=== PATIENT | male | born 1965 | race Caucasian/White ===

== ENCOUNTER 2019-06-25 10:14 | Emergency (ER) | payer SELFPAY ==
[~2019-06-25] VITALS: Ht 162.6 cm; Wt 59.0 kg
[2019-06-25 10:22] VITALS: BP 121/70
[2019-06-25] MEDS ORDERED: ACETAMINOPHEN 325MG TABLET PO ONE (10:45)
[2019-06-25] MEDS ORDERED: ACETAMINOPHEN 500MG TABLET PO NR (11:00)
== END 2019-06-25 12:35 | disposition home or self-care (01) ==
LOC: ER 10:26
DX: H57.11 Ocular pain, right eye (principal); Y08.89XA Assault by other specified means, initial encounter; Y93.9 Activity, unspecified; Y92.9 Unspecified place or not applicable
CPT/HCPCS: 70486; 99284

== ENCOUNTER 2019-07-13 11:07 | Emergency (ER) | payer SELFPAY ==
[~2019-07-13] VITALS: Ht 157.5 cm; Wt 55.0 kg
[2019-07-13] MEDS ORDERED: CYCLOBENZAPRINE 10MG TABLET PO ONE (12:00)
[2019-07-13] MEDS ORDERED: IBUPROFEN 600MG TABLET PO ONE (12:00)
[2019-07-13 12:25] VITALS: BP 111/53
[2019-07-13 12:46] LABS: CLARITY URINE CLEAR (CLEAR); COLOR URINE YELLOW (YELLOW); KETONES URINE NEGATIVE (NEGATIVE); LEUKOCYTE ESTERASE URINE NEGATIVE (NEGATIVE); NITRITE URINE NEGATIVE (NEGATIVE); OCCULT BLOOD URINE NEGATIVE (NEGATIVE); PROTEIN URINE NEGATIVE (NEGATIVE); SPECIFIC GRAVITY URINE 1.007 (1.005-1.030)
== END 2019-07-13 13:26 | disposition home or self-care (01) ==
LOC: ER 11:07
DX: M54.9 Dorsalgia, unspecified (principal); W01.0XXA Fall on same level from slipping, tripping and stumbling without subsequent striking against object, initial encounter; Y93.9 Activity, unspecified; Y92.9 Unspecified place or not applicable
CPT/HCPCS: 81003; 99283

== ENCOUNTER 2019-08-15 18:14 | Inpatient (IN) | payer SELFPAY ==
[~2019-08-15] VITALS: Ht 162.6 cm; Wt 65.8 kg
[2019-08-15] MEDS ORDERED: SODIUM CHLORIDE 0.9% 1,000 ML IV ONE ×3 (18:34→21:45)
[2019-08-15] MEDS ORDERED: KETOROLAC 15MG/ML VIAL IV ONE (18:45)
[2019-08-15] MEDS ORDERED: PIPERACILLIN/TAZ 3.375G PREMIX 50 ML IV ONE (19:00)
[2019-08-15] MEDS ORDERED: VANCOMYCIN 1 G PREMIX 200 ML IV ONE (19:00)
[2019-08-15 19:14] LABS: MEAN CORPUSCULAR HEMOGLOBIN 19.2 pg (28.0-32.0); MEAN CORPUSCULAR VOLUME 67.4 fL (80.0-94.0); MEAN PLATELET VOLUME 8.8 fl (7.4-10.4); PLATELET 89 x1000/uL (130-400); RED BLOOD CELL COUNT 2.43 mill/uL (4.7-6.1); RED CELL DISTRIBUTION WIDTH 22.3 % (11.6-14.6)
[2019-08-15 19:20] LABS: CHLORIDE 100 mEq/L (98-107)
[2019-08-15 19:25] LABS: HEMATOCRIT. 16.4 % (42.0-52.0); HEMOGLOBIN. 4.7 g/dL (14.0-18.0)
[2019-08-15 19:31] LABS: ETHANOL BLOOD 288 mg/dL
[2019-08-15 19:51] LABS: PLATELET ESTIMATE DECREASED
[2019-08-15] MEDS ORDERED: PANTOPRAZOLE SODIUM 40 MG/VIAL IV ONE (20:30)
[2019-08-15] MEDS ORDERED: ONDANSETRON HCL 4MG/2ML INJ IV PRN (21:30)
[2019-08-15] MEDS ORDERED: MAGNESIUM/ALUMINUM HYDROXIDE/SIMETHICONE 30ML UDC PO PRN (21:30)
[2019-08-15] MEDS ORDERED: LORAZEPAM 2MG/ML CPJ IV PRN (21:30)
[2019-08-15] MEDS ORDERED: HYDROCODONE/ACETAMINOPHEN 5/325MG TABLET PO PRN (21:30)
[2019-08-16] VITALS (16 sets, daily range): BP systolic 91–115; BP diastolic 49–65
[2019-08-16 01:13] LABS: TOTAL IRON BINDING CAPACITY 220 ug/dL (250-450)
[2019-08-16 05:22] LABS: MEAN CORPUSCULAR HEMOGLOBIN 20.7 pg (28.0-32.0); MEAN CORPUSCULAR VOLUME 70.3 fL (80.0-94.0); MEAN PLATELET VOLUME 8.9 fl (7.4-10.4); PLATELET 64 x1000/uL (130-400); RED CELL DISTRIBUTION WIDTH 25.1 % (11.6-14.6)
[2019-08-16 05:33] LABS: CHLORIDE 108 mEq/L (98-107)
[2019-08-16 05:37] LABS: HEMATOCRIT. 16.9 % (42.0-52.0)
[2019-08-16 06:24] LABS: PLATELET ESTIMATE DECREASED
[2019-08-16] MEDS ORDERED: DEXT 5%/0.45% NACL 1000ML 1,000 ML IV SCH (09:30)
[2019-08-16] MEDS ORDERED: PANTOPRAZOLE SODIUM 40 MG/VIAL IV SCH (10:00)
[2019-08-16] MEDS: MULTIVITAMINS,THER W-MINERALS TABLET PO SCH (10:04)
[2019-08-16] MEDS: FOLIC ACID 1MG TABLET PO SCH (10:05)
[2019-08-16] MEDS: ACETAMINOPHEN 325MG TABLET PO PRN ×2 (10:05→21:39)
[2019-08-16] MEDS ORDERED: CEFTRIAXONE 1,000 MG in DEXTROSE 5% WATER 50 ML IV SCH ×2 (11:00→18:00)
[2019-08-16] MEDS: PANTOPRAZOLE SODIUM 40 MG/VIAL IV SCH (18:13)
[2019-08-16] MEDS: DEXT 5%/0.45% NACL 1000ML 1,000 ML IV SCH (18:14)
[2019-08-16 20:30] LABS: INR 1.3; PROTHROMBIN TIME 14.1 sec (9.6-11.0)
[2019-08-16 20:34] LABS: MEAN CORPUSCULAR HEMOGLOBIN 23.5 pg (28.0-32.0); MEAN CORPUSCULAR VOLUME 74.4 fL (80.0-94.0); PLATELET 53 x1000/uL (130-400); RED BLOOD CELL COUNT 2.88 mill/uL (4.7-6.1); RED CELL DISTRIBUTION WIDTH 26.3 % (11.6-14.6)
[2019-08-16 20:41] LABS: HEMOGLOBIN 6.8 g/dL (14.0-18.0)
[2019-08-16 20:42] LABS: HEMATOCRIT 21.4 % (42.0-52.0)
[2019-08-16 20:59] LABS: HEPATITIS B SURFACE ANTIGEN NEGATIVE
[2019-08-16 21:05] LABS: CLARITY URINE CLOUDY (CLEAR); COLOR URINE DARK YELLOW (YELLOW); KETONES URINE NEGATIVE (NEGATIVE); LEUKOCYTE ESTERASE URINE 3+ (NEGATIVE); NITRITE URINE POSITIVE (NEGATIVE); OCCULT BLOOD URINE 3+ (NEGATIVE); PROTEIN URINE 1+ (NEGATIVE); SPECIFIC GRAVITY URINE 1.017 (1.005-1.030)
[2019-08-16 21:23] LABS: *AMPHETAMINES SCREEN URINE NEGATIVE (NEGATIVE); *BARBITURATES SCREEN URINE NEGATIVE (NEGATIVE); *BENZODIAZEPINES SCREEN URINE NEGATIVE (NEGATIVE); *COCAINE SCREEN URINE NEGATIVE (NEGATIVE); METHADONE URINE SCREEN NEGATIVE (NEGATIVE); OPIATES URINE SCREEN NEGATIVE (NEGATIVE); PHENCYCLIDINE URINE SCREEN NEGATIVE (NEGATIVE)
[2019-08-16 21:24] LABS: CANNABINOID URINE SCREEN NEGATIVE (NEGATIVE)
[2019-08-16 21:29] LABS: HEPATITIS A AB IGM NEGATIVE (NEGATIVE)
[2019-08-17] VITALS (8 sets, daily range): BP systolic 103–121; BP diastolic 52–69
[2019-08-17] MEDS: DEXT 5%/0.45% NACL 1000ML 1,000 ML IV SCH ×3 (03:20→23:55)
[2019-08-17 06:29] LABS: BASOPHILS % 0.3 % (0.0-2.0); EOSINOPHILS % 1.2 % (0.0-5.0); HEMATOCRIT. 24.8 % (42.0-52.0); HEMOGLOBIN. 8.1 g/dL (14.0-18.0); MEAN CORPUSCULAR HEMOGLOBIN 25.1 pg (28.0-32.0); MEAN CORPUSCULAR VOLUME 76.6 fL (80.0-94.0); MEAN PLATELET VOLUME 8.5 fl (7.4-10.4); MONOCYTES % 10.4 % (2.0-8.0); NEUTROPHILS % 80.1 % (40.0-76.0); PLATELET 55 x1000/uL (130-400); RED BLOOD CELL COUNT 3.24 mill/uL (4.7-6.1); RED CELL DISTRIBUTION WIDTH 27.4 % (11.6-14.6)
[2019-08-17 06:32] LABS: CHLORIDE 106 mEq/L (98-107)
[2019-08-17] MEDS: MULTIVITAMINS,THER W-MINERALS TABLET PO SCH (08:01)
[2019-08-17] MEDS: FOLIC ACID 1MG TABLET PO SCH (08:01)
[2019-08-17] MEDS: PANTOPRAZOLE SODIUM 40 MG/VIAL IV SCH ×2 (08:17→17:18)
[2019-08-17] MEDS ORDERED: POTASSIUM CHLORIDE INJ 40 MEQ in DEXT 5% WATER 250 ML IV NR (09:00)
[2019-08-17 09:05] LABS: INR 1.4; PROTHROMBIN TIME 15.3 sec (9.6-11.0)
[2019-08-17] MEDS ORDERED: CEFAZOLIN 2,000 MG in DEXT 5% WATER 100 ML IV SCH (10:00)
[2019-08-17] MEDS ORDERED: MIDAZOLAM HCL 5 MG/5 ML VIAL IV PRN (10:38)
[2019-08-17] MEDS ORDERED: MIDAZOLAM HCL 5 MG/5 ML VIAL ONE (10:38)
[2019-08-17] MEDS ORDERED: FENTANYL CITRATE/PF 50MCG/ML 2ML VIAL ONE (10:38)
[2019-08-17] MEDS: ACETAMINOPHEN 325MG TABLET PO PRN (13:14)
[2019-08-17] MEDS: MIDODRINE HCL 5MG TABLET PO SCH ×2 (13:14→17:18)
[2019-08-17] MEDS: CEFAZOLIN 2,000 MG in DEXT 5% WATER 100 ML IV SCH (13:26)
[2019-08-17] MEDS ORDERED: LIDOCAINE HCL 1% 20ML VIAL (Pyxis) INJ ONE (14:16)
[2019-08-17] MEDS ORDERED: SODIUM BICARBONATE 4% (2.4MEQ) 5ML VIAL IV ONE (14:17)
[2019-08-17 15:59] LABS: PHOSPHORUS 2.8 mg/dL (2.5-4.9)
[2019-08-17 16:28] LABS: VITAMIN B12 SERUM >2000 pg/mL pg/mL (211-911)
[2019-08-17] MEDS ORDERED: SORBITOL 70% SOLN 30ML PO NR (18:00)
[2019-08-18] VITALS: BP 122/68
[2019-08-18] MEDS: CEFAZOLIN 2,000 MG in DEXT 5% WATER 100 ML IV SCH ×2 (01:04→14:11)
[2019-08-18 04:00] VITALS: BP 107/63
[2019-08-18] MEDS: ACETAMINOPHEN 325MG TABLET PO PRN (06:14)
[2019-08-18 07:00] LABS: BASOPHILS % 0.2 % (0.0-2.0); EOSINOPHILS % 0.8 % (0.0-5.0); HEMATOCRIT. 25.5 % (42.0-52.0); HEMOGLOBIN. 8.2 g/dL (14.0-18.0); LYMPHOCYTES % 11.8 % (20.0-50.0); MEAN CORPUSCULAR VOLUME 77.7 fL (80.0-94.0); MEAN PLATELET VOLUME 8.7 fl (7.4-10.4); MONOCYTES % 9.8 % (2.0-8.0); NEUTROPHILS % 77.4 % (40.0-76.0); PLATELET 54 x1000/uL (130-400); RED BLOOD CELL COUNT 3.29 mill/uL (4.7-6.1); RED CELL DISTRIBUTION WIDTH 27.1 % (11.6-14.6)
[2019-08-18 08:00] VITALS: BP 103/61
[2019-08-18] MEDS ORDERED: SORBITOL 70% SOLN 30ML PO NR (08:00)
[2019-08-18] MEDS: FOLIC ACID 1MG TABLET PO SCH (08:32)
[2019-08-18] MEDS: PANTOPRAZOLE SODIUM 40 MG/VIAL IV SCH ×2 (08:32→17:30)
[2019-08-18] MEDS: MULTIVITAMINS,THER W-MINERALS TABLET PO SCH (08:32)
[2019-08-18] MEDS: DEXT 5%/0.45% NACL 1000ML 1,000 ML IV SCH ×2 (08:39→17:35)
[2019-08-18] MEDS: MIDODRINE HCL 5MG TABLET PO SCH ×3 (08:39→17:34)
[2019-08-18 12:03] VITALS: BP 98/57
[2019-08-18] MEDS ORDERED: MIDAZOLAM HCL 5 MG/5 ML VIAL ONE (15:30)
[2019-08-18] MEDS ORDERED: MIDAZOLAM HCL 5 MG/5 ML VIAL IV PRN (15:30)
[2019-08-18] MEDS ORDERED: POTASSIUM CHLORIDE 20MEQ TABLET SR PO NR (16:30)
[2019-08-18 20:00] VITALS: BP 100/68
[2019-08-19] VITALS: BP 110/71
[2019-08-19] MEDS: CEFAZOLIN 2,000 MG in DEXT 5% WATER 100 ML IV SCH ×2 (01:13→15:01)
[2019-08-19] MEDS: ACETAMINOPHEN 325MG TABLET PO PRN (01:19)
[2019-08-19 03:56] VITALS: BP 96/59
[2019-08-19 07:44] LABS: CHLORIDE 110 mEq/L (98-107)
[2019-08-19 07:57] LABS: BASOPHILS % 0.5 % (0.0-2.0); EOSINOPHILS % 1.8 % (0.0-5.0); HEMATOCRIT. 26.7 % (42.0-52.0); HEMOGLOBIN. 8.4 g/dL (14.0-18.0); LYMPHOCYTES % 6.7 % (20.0-50.0); MEAN CORPUSCULAR HEMOGLOBIN 24.8 pg (28.0-32.0); MEAN CORPUSCULAR VOLUME 79.2 fL (80.0-94.0); MEAN PLATELET VOLUME 8.5 fl (7.4-10.4); MONOCYTES % 10.7 % (2.0-8.0); NEUTROPHILS % 80.3 % (40.0-76.0); RED BLOOD CELL COUNT 3.38 mill/uL (4.7-6.1); RED CELL DISTRIBUTION WIDTH 27.5 % (11.6-14.6)
[2019-08-19 08:21] LABS: PLATELET 50 x1000/uL (130-400)
[2019-08-19 08:39] VITALS: BP 86/47
[2019-08-19 09:09] LABS: FOLATE HEMATOCRIT 25.6 % (37.5-51.0)
[2019-08-19] MEDS: PANTOPRAZOLE SODIUM 40 MG/VIAL IV SCH ×2 (10:05→17:46)
[2019-08-19] MEDS: MULTIVITAMINS,THER W-MINERALS TABLET PO SCH (10:05)
[2019-08-19] MEDS: MIDODRINE HCL 5MG TABLET PO SCH ×3 (10:05→17:46)
[2019-08-19] MEDS: FOLIC ACID 1MG TABLET PO SCH (10:05)
[2019-08-19] MEDS: DEXT 5%/0.45% NACL 1000ML 1,000 ML IV SCH ×3 (11:12→15:03)
[2019-08-19 12:00] VITALS: BP 103/51
[2019-08-19 20:00] VITALS: BP 106/63
[2019-08-20] VITALS: BP 110/63
[2019-08-20] MEDS: CEFAZOLIN 2,000 MG in DEXT 5% WATER 100 ML IV SCH ×2 (01:20→15:30)
[2019-08-20] MEDS: DEXT 5%/0.45% NACL 1000ML 1,000 ML IV SCH ×2 (01:21→15:30)
[2019-08-20 04:00] VITALS: BP 99/56
[2019-08-20 05:50] LABS: BASOPHILS % 1.1 % (0.0-2.0); EOSINOPHILS % 1.7 % (0.0-5.0); HEMATOCRIT. 27.8 % (42.0-52.0); HEMOGLOBIN. 8.8 g/dL (14.0-18.0); LYMPHOCYTES % 11.9 % (20.0-50.0); MEAN CORPUSCULAR HEMOGLOBIN 25.2 pg (28.0-32.0); MEAN CORPUSCULAR VOLUME 79.5 fL (80.0-94.0); MEAN PLATELET VOLUME 8.6 fl (7.4-10.4); MONOCYTES % 11.7 % (2.0-8.0); NEUTROPHILS % 73.6 % (40.0-76.0); PLATELET 56 x1000/uL (130-400); RED CELL DISTRIBUTION WIDTH 29.1 % (11.6-14.6)
[2019-08-20 06:32] LABS: CHLORIDE 109 mEq/L (98-107)
[2019-08-20 08:00] VITALS: BP 97/62
[2019-08-20] MEDS: MULTIVITAMINS,THER W-MINERALS TABLET PO SCH (08:33)
[2019-08-20] MEDS: FOLIC ACID 1MG TABLET PO SCH (08:33)
[2019-08-20] MEDS: PANTOPRAZOLE SODIUM 40 MG/VIAL IV SCH ×2 (08:33→18:06)
[2019-08-20] MEDS: MIDODRINE HCL 5MG TABLET PO SCH ×3 (08:39→18:08)
[2019-08-20 12:00] VITALS: BP 96/50
[2019-08-20 14:49] LABS: BG BASE EXCESS -14.2 mmol/L (-2.0-2.0); BG CARBOXYHEMOGLOBIN 1.1 % (0.5-1.5); BG DEOXYHEMOGLOBIN 1.3 % (0.0-5.0); BG FRACTION INSPIRED OXYGEN 21; BG HCO3 ACT 10.6 mmol/L (22.0-26.0); BG METHEMOGLOBIN 0.2 % (0.0-1.5); BG OXYGEN SATURATION 98.7 % (92.0-98.5); BG OXYHEMOGLOBIN 97.4 % (94.0-97.0); BG PCO2 21.8 mmHg (35.0-45.0); BG PH 7.303 (7.350-7.450); BG PO2 122.4 mmHg (75.0-100.0); BG SAMPLE SITE LEFT RADIAL; BG TOTAL HEMOGLOBIN 8.8 g/dL (12.0-18.0); BG VENT MODE ROOM AIR
[2019-08-20] MEDS ORDERED: SODIUM BICARBONATE 8.4% 1 MEQ/ML 50ML SYR IV SCH (15:30)
[2019-08-20 16:00] VITALS: BP 96/55
[2019-08-20] MEDS: CITRIC ACID/SODIUM CITRATE SOLN 30ML UDC PO SCH (18:08)
[2019-08-20 20:00] VITALS: BP 99/53
[2019-08-21] VITALS: BP 100/53
[2019-08-21] MEDS: CEFAZOLIN 2,000 MG in DEXT 5% WATER 100 ML IV SCH ×2 (01:09→15:09)
[2019-08-21 04:00] VITALS: BP 93/58
[2019-08-21] MEDS: DEXT 5%/0.45% NACL 1000ML 1,000 ML IV SCH (04:10)
[2019-08-21 06:19] LABS: HEMATOCRIT. 25.6 % (42.0-52.0); HEMOGLOBIN. 8.3 g/dL (14.0-18.0); MEAN CORPUSCULAR HEMOGLOBIN 25.6 pg (28.0-32.0); MEAN CORPUSCULAR VOLUME 79.3 fL (80.0-94.0); MEAN PLATELET VOLUME 8.6 fl (7.4-10.4); PLATELET 64 x1000/uL (130-400); RED BLOOD CELL COUNT 3.22 mill/uL (4.7-6.1)
[2019-08-21 08:00] VITALS: BP 87/46
[2019-08-21] MEDS: CITRIC ACID/SODIUM CITRATE SOLN 30ML UDC PO SCH ×2 (10:28→15:09)
[2019-08-21] MEDS: FOLIC ACID 1MG TABLET PO SCH (10:28)
[2019-08-21] MEDS: PANTOPRAZOLE SODIUM 40 MG/VIAL IV SCH ×2 (10:28→18:16)
[2019-08-21] MEDS: MULTIVITAMINS,THER W-MINERALS TABLET PO SCH (10:28)
[2019-08-21] MEDS: MIDODRINE HCL 5MG TABLET PO SCH ×3 (10:29→18:17)
[2019-08-21 12:00] VITALS: BP 91/59
[2019-08-21 12:29] LABS: INR 2.7; PROTHROMBIN TIME 28.9 sec (9.6-11.0)
[2019-08-21 13:05] LABS: PLATELET ESTIMATE DECREASED
[2019-08-21 16:00] VITALS: BP 97/46
[2019-08-21 17:08] LABS: CREATINE KINASE 17 IU/L (39-308)
[2019-08-21] MEDS: SODIUM BICARBONATE 50 MEQ in DEXT 5%/0.45% NACL 1000ML 1,000 ML IV SCH (18:17)
[2019-08-21 20:31] VITALS: BP 108/60
[2019-08-22 00:27] VITALS: BP 111/62
[2019-08-22] MEDS: HALOPERIDOL LACTATE 5MG/ML VIAL IM PRN ×3 (01:07→20:40)
[2019-08-22] MEDS: CEFAZOLIN 1000MG PREMIX 50 ML IV SCH ×2 (01:08→14:25)
[2019-08-22 04:00] VITALS: BP 103/60
[2019-08-22 07:04] LABS: HEMATOCRIT. 25.4 % (42.0-52.0); HEMOGLOBIN. 8.2 g/dL (14.0-18.0); MEAN PLATELET VOLUME 8.4 fl (7.4-10.4); PLATELET 65 x1000/uL (130-400); RED BLOOD CELL COUNT 3.14 mill/uL (4.7-6.1); RED CELL DISTRIBUTION WIDTH 31.5 % (11.6-14.6)
[2019-08-22 07:56] LABS: CHLORIDE 102 mEq/L (98-107)
[2019-08-22] MEDS: MIDODRINE HCL 5MG TABLET PO SCH ×3 (09:25→17:49)
[2019-08-22] MEDS: MULTIVITAMINS,THER W-MINERALS TABLET PO SCH (09:25)
[2019-08-22] MEDS: FOLIC ACID 1MG TABLET PO SCH (09:25)
[2019-08-22] MEDS: PANTOPRAZOLE SODIUM 40 MG/VIAL IV SCH ×2 (09:25→17:49)
[2019-08-22] MEDS: ACETAMINOPHEN 325MG TABLET PO PRN ×2 (09:35→18:13)
[2019-08-22] MEDS ORDERED: PHYTONADIONE 10MG/ML AMP SUBCUT NR (10:00)
[2019-08-22] MEDS: SODIUM BICARBONATE 50 MEQ in DEXT 5%/0.45% NACL 1000ML 1,000 ML IV SCH (10:45)
[2019-08-22 10:50] LABS: PLATELET ESTIMATE DECREASED
[2019-08-22 12:00] VITALS: BP 90/55
[2019-08-22 12:19] LABS: INR 3.2; PARTIAL THROMBOPLASTIN TIME 61.7 sec (23.4-31.0)
[2019-08-22 12:52] VITALS: BP 97/50
[2019-08-22 16:00] VITALS: BP 97/59
[2019-08-22] MEDS ORDERED: HYDROCODONE/ACETAMINOPHEN 5/325MG TABLET PO PRN (19:30)
[2019-08-22 20:00] VITALS: BP 107/74
[2019-08-22] MEDS: DIPHENHYDRAMINE 50MG/ML VIAL IV PRN (20:17)
[2019-08-23] VITALS: BP 112/69
[2019-08-23] MEDS: SODIUM BICARBONATE 50 MEQ in DEXT 5%/0.45% NACL 1000ML 1,000 ML IV SCH ×2 (02:27→15:40)
[2019-08-23] MEDS: DIPHENHYDRAMINE 50MG/ML VIAL IV PRN ×2 (02:30→20:47)
[2019-08-23 04:00] VITALS: BP 103/66
[2019-08-23] MEDS: HALOPERIDOL LACTATE 5MG/ML VIAL IM PRN ×2 (04:41→20:38)
[2019-08-23 07:11] LABS: FOLATE RBC 1480 ng/mL (>498)
[2019-08-23 07:26] LABS: INR 2.3; PROTHROMBIN TIME 24.9 sec (9.6-11.0)
[2019-08-23 07:31] LABS: HEMATOCRIT. 26.5 % (42.0-52.0); HEMOGLOBIN. 8.6 g/dL (14.0-18.0); MEAN CORPUSCULAR VOLUME 80.4 fL (80.0-94.0); MEAN PLATELET VOLUME 8.5 fl (7.4-10.4); PLATELET 63 x1000/uL (130-400); RED BLOOD CELL COUNT 3.29 mill/uL (4.7-6.1); RED CELL DISTRIBUTION WIDTH 32.3 % (11.6-14.6)
[2019-08-23 08:18] VITALS: BP 114/65
[2019-08-23] MEDS ORDERED: SODIUM BICARBONATE 4% (2.4MEQ) 5ML VIAL IV ONE (08:50)
[2019-08-23] MEDS ORDERED: LIDOCAINE HCL 1% 20ML VIAL (Pyxis) INJ ONE (08:51)
[2019-08-23] MEDS: MIDODRINE HCL 5MG TABLET PO SCH ×3 (09:00→16:31)
[2019-08-23] MEDS: PANTOPRAZOLE SODIUM 40 MG/VIAL IV SCH ×2 (09:00→16:33)
[2019-08-23] MEDS: MULTIVITAMINS,THER W-MINERALS TABLET PO SCH (09:00)
[2019-08-23] MEDS: FOLIC ACID 1MG TABLET PO SCH (09:00)
[2019-08-23] MEDS ORDERED: PHYTONADIONE 10MG/ML AMP SUBCUT NR ×2 (10:15)
[2019-08-23 12:00] VITALS: BP 102/69
[2019-08-23 15:39] VITALS: BP 113/72
[2019-08-23 16:06] LABS: PLATELET ESTIMATE DECREASED
[2019-08-23 20:00] VITALS: BP 113/77
[2019-08-23] MEDS: CEFAZOLIN 1000MG PREMIX 50 ML IV SCH (20:38)
[2019-08-24] VITALS: BP 95/50
[2019-08-24 04:00] VITALS: BP 111/60
[2019-08-24 08:00] VITALS: BP_SYST 100; BP_SYST 116; BP_DIAS 59; BP_DIAS 65
[2019-08-24] MEDS: PANTOPRAZOLE SODIUM 40 MG/VIAL IV SCH ×2 (08:53→18:15)
[2019-08-24] MEDS: FOLIC ACID 1MG TABLET PO SCH (08:53)
[2019-08-24] MEDS: MULTIVITAMINS,THER W-MINERALS TABLET PO SCH (08:53)
[2019-08-24] MEDS: MIDODRINE HCL 5MG TABLET PO SCH ×3 (08:53→18:15)
[2019-08-24] MEDS: CEFAZOLIN 1000MG PREMIX 50 ML IV SCH ×2 (09:09→20:37)
[2019-08-24 12:00] VITALS: BP 101/60
[2019-08-24 13:46] LABS: HEMATOCRIT. 22.4 % (42.0-52.0); HEMOGLOBIN. 7.3 g/dL (14.0-18.0); MEAN CORPUSCULAR VOLUME 79.2 fL (80.0-94.0); MEAN PLATELET VOLUME 8.3 fl (7.4-10.4); RED BLOOD CELL COUNT 2.83 mill/uL (4.7-6.1); RED CELL DISTRIBUTION WIDTH 33.5 % (11.6-14.6)
[2019-08-24 13:56] LABS: PLATELET 38 x1000/uL (130-400)
[2019-08-24 14:24] LABS: PLATELET ESTIMATE MARKEDLY DECREASED
[2019-08-24] MEDS: SODIUM BICARBONATE 50 MEQ in DEXT 5%/0.45% NACL 1000ML 1,000 ML IV SCH ×2 (14:30→19:33)
[2019-08-24 16:00] VITALS: BP 103/68
[2019-08-24 20:00] VITALS: BP 99/62
[2019-08-24] MEDS: DIPHENHYDRAMINE 50MG/ML VIAL IV PRN (20:37)
[2019-08-24] MEDS: HALOPERIDOL LACTATE 5MG/ML VIAL IM PRN (21:01)
[2019-08-25] VITALS: BP 107/65
[2019-08-25 04:00] VITALS: BP 106/78
[2019-08-25] MEDS: HYDROCODONE/ACETAMINOPHEN 5/325MG TABLET PO PRN (04:46)
[2019-08-25 07:11] LABS: HEMATOCRIT. 23.3 % (42.0-52.0); HEMOGLOBIN. 7.6 g/dL (14.0-18.0); MEAN CORPUSCULAR HEMOGLOBIN 26.3 pg (28.0-32.0); MEAN CORPUSCULAR VOLUME 80.4 fL (80.0-94.0); MEAN PLATELET VOLUME 8.3 fl (7.4-10.4); RED CELL DISTRIBUTION WIDTH 34.7 % (11.6-14.6)
[2019-08-25 08:00] VITALS: BP 101/60
[2019-08-25] MEDS: CEFAZOLIN 1000MG PREMIX 50 ML IV SCH ×2 (08:21→21:05)
[2019-08-25] MEDS: MULTIVITAMINS,THER W-MINERALS TABLET PO SCH (08:22)
[2019-08-25] MEDS: FOLIC ACID 1MG TABLET PO SCH (08:22)
[2019-08-25] MEDS: PANTOPRAZOLE SODIUM 40 MG/VIAL IV SCH (08:22)
[2019-08-25] MEDS: MIDODRINE HCL 5MG TABLET PO SCH ×3 (08:23→17:10)
[2019-08-25 10:14] LABS: PLATELET ESTIMATE MARKEDLY DECREASED
[2019-08-25] MEDS ORDERED: POTASSIUM CHLORIDE 20MEQ/PACKET PO SCH (10:15)
[2019-08-25 10:16] LABS: PLATELET 25 x1000/uL (130-400)
[2019-08-25 11:45] VITALS: BP 107/60
[2019-08-25 16:00] VITALS: BP 113/76
[2019-08-25 20:00] VITALS: BP 107/67
[2019-08-26] VITALS (7 sets, daily range): BP systolic 101–115; BP diastolic 60–74
[2019-08-26] MEDS: HYDROCODONE/ACETAMINOPHEN 5/325MG TABLET PO PRN ×2 (01:31→12:01)
[2019-08-26 06:08] LABS: BASOPHILS % 0.5 % (0.0-2.0); EOSINOPHILS % 1.3 % (0.0-5.0); HEMATOCRIT. 23.2 % (42.0-52.0); HEMOGLOBIN. 7.6 g/dL (14.0-18.0); LYMPHOCYTES % 5.5 % (20.0-50.0); MEAN CORPUSCULAR HEMOGLOBIN 26.5 pg (28.0-32.0); MEAN CORPUSCULAR VOLUME 80.8 fL (80.0-94.0); MEAN PLATELET VOLUME 11.2 fl (7.4-10.4); MONOCYTES % 3.7 % (2.0-8.0); RED BLOOD CELL COUNT 2.87 mill/uL (4.7-6.1)
[2019-08-26 06:17] LABS: PLATELET 20 x1000/uL (130-400)
[2019-08-26] MEDS: FOLIC ACID 1MG TABLET PO SCH (08:45)
[2019-08-26] MEDS: MIDODRINE HCL 5MG TABLET PO SCH ×3 (08:45→17:00)
[2019-08-26] MEDS: MULTIVITAMINS,THER W-MINERALS TABLET PO SCH (08:45)
[2019-08-26] MEDS: CEFAZOLIN 1000MG PREMIX 50 ML IV SCH ×2 (08:46→20:54)
[2019-08-26] MEDS: DIPHENHYDRAMINE 50MG/ML VIAL IV PRN (13:54)
[2019-08-27] VITALS (11 sets, daily range): BP systolic 96–128; BP diastolic 52–76
[2019-08-27] MEDS: FOLIC ACID 1MG TABLET PO SCH (08:37)
[2019-08-27] MEDS: MULTIVITAMINS,THER W-MINERALS TABLET PO SCH (08:37)
[2019-08-27] MEDS: MIDODRINE HCL 5MG TABLET PO SCH ×3 (08:38→16:47)
[2019-08-27 11:49] LABS: MEAN CORPUSCULAR HEMOGLOBIN 26.3 pg (28.0-32.0); MEAN CORPUSCULAR VOLUME 81.8 fL (80.0-94.0); RED BLOOD CELL COUNT 2.23 mill/uL (4.7-6.1); RED CELL DISTRIBUTION WIDTH 35.3 % (11.6-14.6)
[2019-08-27 11:52] LABS: HEMATOCRIT 18.2 % (42.0-52.0); HEMOGLOBIN 5.9 g/dL (14.0-18.0)
[2019-08-27 17:18] LABS: INR 1.7; PROTHROMBIN TIME 18.6 sec (9.6-11.0)
[2019-08-28] VITALS (27 sets, daily range): BP systolic 91–126; BP diastolic 46–85
[2019-08-28] MEDS: MULTIVITAMINS,THER W-MINERALS TABLET PO SCH (09:49)
[2019-08-28] MEDS: FOLIC ACID 1MG TABLET PO SCH (09:49)
[2019-08-28] MEDS: MIDODRINE HCL 5MG TABLET PO SCH ×3 (09:49→17:46)
[2019-08-28 10:59] LABS: MEAN CORPUSCULAR HEMOGLOBIN 28.3 pg (28.0-32.0); MEAN CORPUSCULAR VOLUME 83.2 fL (80.0-94.0); RED BLOOD CELL COUNT 2.19 mill/uL (4.7-6.1); RED CELL DISTRIBUTION WIDTH 26.4 % (11.6-14.6)
[2019-08-28 11:06] LABS: CHLORIDE 103 mEq/L (98-107)
[2019-08-28 11:15] LABS: HEMATOCRIT. 18.2 % (42.0-52.0); HEMOGLOBIN. 6.2 g/dL (14.0-18.0); PLATELET 8 x1000/uL (130-400)
[2019-08-28] MEDS ORDERED: PHYTONADIONE 10MG/ML AMP SUBCUT NR (11:45)
[2019-08-28] MEDS ORDERED: SODIUM POLYSTYRENE SULFONATE 15 G/60 ML BOT PO NR (12:00)
[2019-08-28 13:36] LABS: PLATELET ESTIMATE MARKEDLY DECREASED
[2019-08-28] MEDS: HALOPERIDOL LACTATE 5MG/ML VIAL IM PRN (17:58)
[2019-08-29] VITALS (25 sets, daily range): BP systolic 98–125; BP diastolic 50–99
[2019-08-29 05:58] LABS: BASOPHILS % 1.4 % (0.0-2.0); EOSINOPHILS % 1.7 % (0.0-5.0); LYMPHOCYTES % 7.1 % (20.0-50.0); MEAN CORPUSCULAR HEMOGLOBIN 29.1 pg (28.0-32.0); MEAN CORPUSCULAR VOLUME 84.5 fL (80.0-94.0); MEAN PLATELET VOLUME 8.7 fl (7.4-10.4); NEUTROPHILS % 81.8 % (40.0-76.0); PLATELET 56 x1000/uL (130-400); RED BLOOD CELL COUNT 1.87 mill/uL (4.7-6.1); RED CELL DISTRIBUTION WIDTH 21.4 % (11.6-14.6)
[2019-08-29 06:19] LABS: HEMATOCRIT. 15.8 % (42.0-52.0); HEMOGLOBIN. 5.4 g/dL (14.0-18.0)
[2019-08-29] MEDS: FOLIC ACID 1MG TABLET PO SCH (08:25)
[2019-08-29] MEDS: MIDODRINE HCL 5MG TABLET PO SCH ×3 (08:25→17:44)
[2019-08-29] MEDS: MULTIVITAMINS,THER W-MINERALS TABLET PO SCH (08:25)
[2019-08-29] MEDS ORDERED: SODIUM POLYSTYRENE SULFONATE 15 G/60 ML BOT PO NR (09:00)
[2019-08-29 10:24] LABS: INR 1.7; PROTHROMBIN TIME 18.5 sec (9.6-11.0)
[2019-08-29 10:30] LABS: PLATELET 13 x1000/uL (130-400)
[2019-08-29] MEDS: DIPHENHYDRAMINE 50MG/ML VIAL IV PRN (15:22)
[2019-08-29] MEDS ORDERED: CEFEPIME 1,000 MG in DEXTROSE 5% WATER 50 ML IV SCH (18:00)
[2019-08-29] MEDS: METRONIDAZOLE 500 MG PREMIX 100 ML IV SCH (20:35)
[2019-08-30] VITALS (9 sets, daily range): BP systolic 54–118; BP diastolic 26–88
[2019-08-30] MEDS: METRONIDAZOLE 500 MG PREMIX 100 ML IV SCH ×2 (02:42→10:24)
[2019-08-30 08:00] LABS: MEAN CORPUSCULAR VOLUME 83.3 fL (80.0-94.0); MEAN PLATELET VOLUME 9.7 fl (7.4-10.4); RED BLOOD CELL COUNT 2.15 mill/uL (4.7-6.1); RED CELL DISTRIBUTION WIDTH 21.5 % (11.6-14.6)
[2019-08-30 08:08] LABS: HEMATOCRIT. 17.9 % (42.0-52.0); HEMOGLOBIN. 6.2 g/dL (14.0-18.0); PLATELET 12 x1000/uL (130-400)
[2019-08-30] MEDS ORDERED: ALBUTEROL (0.083%) 2.5MG/3ML NEB HHN SCH (08:34)
[2019-08-30] MEDS: MIDODRINE HCL 5MG TABLET PO SCH ×2 (08:52→13:00)
[2019-08-30] MEDS: MULTIVITAMINS,THER W-MINERALS TABLET PO SCH (08:52)
[2019-08-30] MEDS: FOLIC ACID 1MG TABLET PO SCH (08:52)
[2019-08-30] MEDS: CITRIC ACID/SODIUM CITRATE SOLN 30ML UDC PO SCH ×2 (09:22→13:00)
[2019-08-30] MEDS ORDERED: SODIUM POLYSTYRENE SULFONATE 15 G/60 ML BOT PO NR (09:30)
[2019-08-30 09:35] LABS: PLATELET ESTIMATE MARKEDL
[2019-08-30] MEDS ORDERED: MORPHINE SULFATE 250 MG in DEXT 5% WATER 240 ML IV SCH (12:45)
[2019-08-30] MEDS ORDERED: MORPHINE (DRIP)100 MG in DEXT 5% WATER 100ML IV SCH (14:00)
== END 2019-08-30 17:47 | disposition expired | DRG 720 ==
LOC: ER 18:14 → 6WST 21:04 → EDBEDREQTM 21:13 → EDBEDREQ 21:13 → ENRESERV 08-16 07:37 → 6EST 08-27 12:50 → 3WST 08-28 14:25
PROVIDERS: ADMIT Hospitalist; ATTEND Hospitalist
PROC: 30233N1 Transfusion of Nonautologous Red Blood Cells into Peripheral Vein, Percutaneous Approach (ICD-10-PCS; 2019-08-15)
PROC: 0DB78ZX Excision of Stomach, Pylorus, Via Natural or Artificial Opening Endoscopic, Diagnostic (ICD-10-PCS; principal; 2019-08-17)
PROC: 0W9G3ZZ Drainage of Peritoneal Cavity, Percutaneous Approach (ICD-10-PCS; 2019-08-17)
PROC: 0DJD8ZZ Inspection of Lower Intestinal Tract, Via Natural or Artificial Opening Endoscopic (ICD-10-PCS; 2019-08-18)
PROC: 5A1D70Z Performance of Urinary Filtration, Intermittent, Less than 6 Hours Per Day (ICD-10-PCS; 2019-08-22)
PROC: 02HV33Z Insertion of Infusion Device into Superior Vena Cava, Percutaneous Approach (ICD-10-PCS; 2019-08-23)
PROC: B548ZZA Ultrasonography of Superior Vena Cava, Guidance (ICD-10-PCS; 2019-08-23)
PROC: B5181ZA Fluoroscopy of Superior Vena Cava using Low Osmolar Contrast, Guidance (ICD-10-PCS; 2019-08-23)
PROC: 5A1D70Z Performance of Urinary Filtration, Intermittent, Less than 6 Hours Per Day (ICD-10-PCS; 2019-08-25)
PROC: 30233R1 Transfusion of Nonautologous Platelets into Peripheral Vein, Percutaneous Approach (ICD-10-PCS; 2019-08-28)
DX: A41.51 Sepsis due to Escherichia coli [E. coli] (principal); E43 Unspecified severe protein-calorie malnutrition; N17.9 Acute kidney failure, unspecified; D69.6 Thrombocytopenia, unspecified; D68.9 Coagulation defect, unspecified; E87.2 Acidosis; E87.1 Hypo-osmolality and hyponatremia; K76.6 Portal hypertension; S22.49XA Multiple fractures of ribs, unspecified side, initial encounter for closed fracture; K70.31 Alcoholic cirrhosis of liver with ascites; D50.9 Iron deficiency anemia, unspecified; F10.229 Alcohol dependence with intoxication, unspecified; K29.70 Gastritis, unspecified, without bleeding; K31.89 Other diseases of stomach and duodenum; K64.4 Residual hemorrhoidal skin tags; K64.8 Other hemorrhoids; K80.21 Calculus of gallbladder without cholecystitis with obstruction; N39.0 Urinary tract infection, site not specified; Z66 Do not resuscitate; R16.1 Splenomegaly, not elsewhere classified; L03.115 Cellulitis of right lower limb; L03.116 Cellulitis of left lower limb; W18.39XA Other fall on same level, initial encounter; Z59.0 Homelessness; Y93.89 Activity, other specified; Y92.89 Other specified places as the place of occurrence of the external cause; Y99.8 Other external cause status; Z68.24 Body mass index [BMI] 24.0-24.9, adult; Z79.899 Other long term (current) drug therapy; Z71.41 Alcohol abuse counseling and surveillance of alcoholic
CPT/HCPCS: 36415; 36600; 49083; 71101; 73502; 74181; 76700; 76705; 76937; 77001; 80048; 80053; 80076; 80305; 80320; 81003; 82040; 82105; 82140; 82248; 82270; 82375; 82533; 82550; 82570; 82575; 82607; 82728; 82747; 82805; 82962; 83540; 83550; 83605; 83735; 83880; 83930; 83935; 84100; 84145; 84300; 84443; 84484; 85014; 85025; 85027; 85384; 86705; 86706; 86709; 86803; 86850; 86900; 86920; 87077; 87186; 87340; 88305; 88312; 88313; 96365; 97116; 97162; 97530; 99291; C1752; C9113; J0690; J0692; J0696; J1200; J1630; J1642; J1885; J2060; J2250; J2270; J2405; J2543; J3010; J3370; J3430; J3480; J3490; J7030; J7060; P9016; P9021; P9034; G0480